=== PATIENT | female | born 1935 | race Caucasian/White ===

== ENCOUNTER 2017-05-06 15:47 | Emergency (ER) | payer OTHER ==
--- NOTE | 2017-05-06 16:49 | DIAGNOSTIC IMAGING REPORT ---
PROCEDURE: CT HEAD WITHOUT CONTRAST INDICATION: TRAUMA/INJURY TECHNIQUE: Noncontrast axial images with sagittal and coronal reformations. COMPARISON: None. FINDINGS: Mild cortical atrophy and white matter chronic ischemic changes. Normal ventricular system. No evidence of acute intracranial process. Visualized mastoids and sinuses are clear. IMPRESSION: 1. No acute intracranial abnormality 2. Mild atrophy and white matter chronic ischemic changes 3. Findings discussed with Dr. Amaya at 04:26 p.m., [place] Standard Time
--- NOTE | 2017-05-06 19:47 | ED ORDER SUMMARY ---
..... Patient: VIKKI CURTIS OrderSheet [facility] VisitID: [id number] [place] [address] 81y, F Registration Date/Time: 05/06/2017 ORDER SHEET Weight: 74.3 kg (stated) Allergies: Neomycin, Sulfate skin cleanser , Gramicidin, Bacitracin, Polymyxin B, Hydrocortisone, Benzalkonium Chloride GENERAL ORDERS: CT Head wo Cont Urgent (16:01 05/06/2017 Gordon SANCHEZ) (Ack 16:03 PWeiler ER Tech1) (17:04 LWhalen R.N.) Cardiac Panel Stat (16:13 05/06/2017 Gordon SANCHEZ) (Ack 16:23 PWeiler ER Tech1) (17:04 LWhalen R.N.) UA-Culture if indicated Urgent (17:37 05/06/2017 Gordon SANCHEZ) (Ack 17:45 PWeiler ER Tech1) (19:57 RCollier R.N.) MEDICATION ORDERS: Antivert PO 25 mg (NOW) (19:23 05/06/2017 Gordon SANCHEZ) (Ack 19:29 RCollier R.N.) (19:36 RCollier R.N.) Bactrim DS PO (Tablet 800-160 mg) 1 tab (NOW) (19:50 05/06/2017 Gordon SANCHEZ) (19:57 RCollier R.N.) IV FLUIDS: IV Saline Lock (16:13 05/06/2017 Gordon SANCHEZ) (Ack 17:04 LWhalen R.N.) Labetalol IV 20 mg (HIGH ALERT MEDICATION, NOW) (16:42 05/06/2017 Gordon SANCHEZ) (17:04 LWhalen R.N.) ORDER SHEET NOTES: [Electronically signed by Lorene Shook R.N. (20:09 05/06/2017)] [Electronically signed by Shaunna Amaya MD (16:53 05/15/2017)] [Electronically locked/signed by Lorene Shook R.N. (20:09 05/06/2017)]
--- NOTE | 2017-05-06 19:47 | ED ORDER SUMMARY ---
..... Patient: VIKKI CURTIS OrderSheet [facility] VisitID: [id number] [place] [address] 81y, F Registration Date/Time: 05/06/2017 ORDER SHEET Weight: 74.3 kg (stated) Allergies: Neomycin, Sulfate skin cleanser , Gramicidin, Bacitracin, Polymyxin B, Hydrocortisone, Benzalkonium Chloride GENERAL ORDERS: CT Head wo Cont Urgent (16:01 05/06/2017 Gordon SANCHEZ) (Ack 16:03 PWeiler ER Tech1) (17:04 LWhalen R.N.) Cardiac Panel Stat (16:13 05/06/2017 Gordon SANCHEZ) (Ack 16:23 PWeiler ER Tech1) (17:04 LWhalen R.N.) UA-Culture if indicated Urgent (17:37 05/06/2017 Gordon SANCHEZ) (Ack 17:45 PWeiler ER Tech1) (19:57 RCollier R.N.) MEDICATION ORDERS: Antivert PO 25 mg (NOW) (19:23 05/06/2017 Gordon SANCHEZ) (Ack 19:29 RCollier R.N.) (19:36 RCollier R.N.) Bactrim DS PO (Tablet 800-160 mg) 1 tab (NOW) (19:50 05/06/2017 Gordon SANCHEZ) (19:57 RCollier R.N.) IV FLUIDS: IV Saline Lock (16:13 05/06/2017 Gordon SANCHEZ) (Ack 17:04 LWhalen R.N.) Labetalol IV 20 mg (HIGH ALERT MEDICATION, NOW) (16:42 05/06/2017 Gordon SANCHEZ) (17:04 LWhalen R.N.) ORDER SHEET NOTES: [Electronically signed by Lorene Shook R.N. (20:09 05/06/2017)] [Electronically signed by Shaunna Amaya MD (16:53 05/15/2017)] [Electronically locked/signed by Lorene Shook R.N. (20:09 05/06/2017)]
--- NOTE | 2017-05-06 19:47 | ED CLINICAL REPORT ---
Clinical Report - Physicians/Mid Levels [facility] [address] [place] [address] 05/06/2017 15:49 Patient: VIKKI CURTIS Time Seen: 16:01. Arrived- By private vehicle. Historian- patient. HISTORY OF PRESENT ILLNESS Chief Complaint: DIZZINESS. Severity described as moderate at its maximum. When seen in the E.D., it was almost gone. Modifying factors- worsened by changing position. Relieved by nothing. Not described as a sense of rotation, movement or confusion. Not described as feeling off balance, light-headed or weak all over. Described as sense of falling. This started has been intermittent for about 2 weeks and is still present but is better now. No nausea, vomiting or hearing loss. (Pt states that 2 weeks ago, she fell and hit her head. Ever since then, she states that she has felt a little unsteady on her feet intermittently. No focal deficits. Pt does note her BP is running high today.). Similar symptoms previously: Recent medical care: Not recently seen/assessed. REVIEW OF SYSTEMS No headache, double vision, weakness, head injury or chest pain. No palpitations, black stools, numbness, bloody stools or fever. No sore throat, cough, difficulty breathing, abdominal pain or diarrhea. No difficulty with urination, skin rash, enlarged lymph nodes, chills or joint pain. The patient has had mild difficulty walking (intermittently). The patient has also had dizziness. She experienced syncope; (near-syncope). All systems otherwise negative, except as recorded above. PAST HISTORY Problems: High blood pressure . Hyperlipidemia. Coronary Artery Disease. Peripheral Arterial Occlusive Disease. Stenosis right iliac artery . Renal Insufficiency. Edema. Dislocated Shoulder. Cholecystitis. Immunizations. Additional Surgeries: Appendectomy. CABG. Hysterectomy. Medications: Potassium Chloride ER Oral. Metoprolol Tartrate Oral. Lisinopril Oral. Lasix Oral. Clopidogrel Bisulfate Oral. Atorvastatin Calcium Oral. ASA Oral. Acetaminophen Oral. Allergies: Bacitracin. Benzalkonium Chloride. Gramicidin. Hydrocortisone. Neomycin. Polymyxin B. Sulfate skin cleanser . SOCIAL HISTORY Former smoker. No alcohol use or drug use. ADDITIONAL NOTES The nursing notes have been reviewed. PHYSICAL EXAM Vital Signs: 05/06/2017 16:05 BP: 169/134. HR: 68. RR: 18. O2 saturation: 98%. Temp: 98.4 F. Have been reviewed. Appearance: Alert. No acute distress. Eyes: Pupils equal, round and reactive to light. No nystagmus. Extraocular movements normal. ENT: Normal ENT inspection. Moist mucous membranes. Neck: Normal inspection. CVS: Normal heart rate and rhythm. Heart sounds normal. Pulses normal. Respiratory: No respiratory distress. Breath sounds normal. Abdomen: Soft and nontender. Back: Normal inspection. No CVA tenderness. Skin: Skin warm and dry. Normal skin color. No rash. Normal skin turgor. Extremities: Extremities exhibit normal ROM. No lower extremity edema. Neuro: Alert. Mood/affect normal. Speech normal. Cranial nerves normal (as tested). No cerebellar findings. No motor deficit. No sensory deficit. (Patient answers questions appropriately, and is grossly oriented.). LABS, X-RAYS, AND EKG Rhythm Strip #1: Time: (16:10). Rate= 67. Normal sinus rhythm. Regular rhythm. Narrow QRS complexes. No ectopy. Conduction normal. Normal ST segments and T waves. The study was interpreted by me. CT Head: No acute changes. No bony abnormalities, no hemorrhage, no intracranial mass, no midline shift and no hydrocephalus. Head CT performed without contrast. The study was independently viewed by me, interpreted by the radiologist and contemporaneously by me and discussed with the radiologist. Prior studies were not available for comparison. Laboratory Tests: UA-Culture if indicated: (YENY: 05/06/2017 17:45) ( MsgRcvd 05/06/2017 18:04) Final results Test Result Flag Units (Reference) URINE COLOR YELLOW URINE APPEARANCE SL CLOUDY URINE GLUCOSE NEGATIVE (NEGATIVE) URINE BILIRUBIN NEGATIVE (NEGATIVE) URINE KETONE NEGATIVE (NEGATIVE) URINE SPECIFIC GRAVITY 1.010 (1.010-1.030) URINE PH 7.0 (5.0-8.0) URINE PROTEIN NEGATIVE (NEGATIVE) URINE UROBILINOGEN 0.2 EU/dL (0.2-1.0) URINE NITRITE NEGATIVE (NEGATIVE) URINE BLOOD TRACE-INTACT (NEGATIVE) URINE LEUK ESTERASE POSITIVE (NEGATIVE) URINE RBC NONE SEEN rbc/hpf (0-1) URINE WBC 10-15 wbc/hpf (0-1) URINE EPITHELIAL CELLS 0-1 EPI/hpf (0-5) URINE BACTERIA MANY (4+) (NONE SEEN) URINE COMMENT CULTURE INDICATED URINE CULTURES ARE SET-UP BASED ON THE FOLLOWING CRITERIA:POSITIVE NITRITEPOSITIVE LEUKOCYTE ESTERASEGREATER THAN 10 WHITE BLOOD CELLSMODERATE (2+) OR GREATER BACTERIA CBC w Diff: (YENY: 05/06/2017 16:50) ( [facility] 05/06/[place] 17:01) Final results Test Result Flag Units (Reference) WHITE BLOOD COUNT 6.2 K/uL (4.5-11.5) RED BLOOD COUNT 3.97 L M/uL (4.00-5.20) HEMOGLOBIN 11.9 L gm/dL (12.0-16.0) HEMATOCRIT 35.5 L % (36.0-46.0) MEAN CELL VOLUME 90 fL (80-100) MEAN CORPUSCULAR HGB 30 pg (26-34) MEAN CORPUSCULAR HGB CONC 33 g/dL (31-37) RED CELL DISTRIBUTION WIDTH 13.3 % (11.6-14.8) PLATELET COUNT 191 K/uL (150-400) NEUTROPHIL % 66.1 % (50-75) LYMPH % 20.7 L % (25-40) MONO % 9.2 % (3-14) EOSINOPHIL % 3.2 % (0-4) BASOPHIL % 0.8 % (0-2) CHEM 13 PANEL: (YENY: 05/06/2017 16:50) ( [facility] 05/06/2017 17:15) Final results Test Result Flag Units (Reference) GLUCOSE 110 mg/dL (70-110) BUN 26 H mg/dL (7-18) CREATININE 1.8 H mg/dL (0.6-1.3) Estimated GFR 28.85 mL/min Estimated GFR- 34.96 mL/min Note: Persistent reduction over 3 months in eGFR<60 mL/min/1.73 m2 defines CKD. Patients with eGFR values>=60 mL/min/1.73 m2 may also have CKD if evidence ofpersistent proteinuria. Additional information may be foundat www.[email or web address].org. SODIUM 145 mmol/L (136-145) POTASSIUM 3.9 mmol/L (3.5-5.1) CHLORIDE 109 H mmol/L (98-107) CARBON DIOXIDE 29 mmol/L (21-32) CALCIUM 9.5 mg/dL (8.5-10.1) TOTAL PROTEIN 6.3 L g/dL (6.4-8.2) ALBUMIN 3.2 L g/dL (3.3-5.0) BILIRUBIN, TOTAL 0.6 mg/dL (0.0-1.0) ALKALINE PHOSPHATASE 55 U/L (46-116) AST (SGOT) 19 U/L (15-37) ALT (SGPT) 20 U/L (12-78) CPK 62 U/L (24-260) MAGNESIUM 2.2 mg/dL (1.8-2.4) TROPONIN I <0.05 ng/mL (0.00-1.5) TROPONIN REFERENCE RANGE:<0.1 NEGATIVE0.1-1.5 INDETERMINANT>1.5 POSITIVE . Pulse Oximetry: 05/06/2017 16:05 O2 saturation: 98%. (FIO2 - room air). Interpretation: normal. PROGRESS AND PROCEDURES Course of Care: Pt was worked up for her intermittent unsteadiness, post-head trauma. Head CT was unremarkable. Labs were also unremarkable, but UA showed a UTI. Pt was started on abx for this. Her BP was also quite high in the ED, and she was treated for this with labetolol, which did improve her pressure. Pt did not have any focal deficits, and sx had been going on for 2 weeks. Head trauma was also distant, pt ambulated well in the ED, and I felt the pt was stable for d/c home. Patient and family counseled in person regarding the patient's stable condition, test results, diagnosis and need for follow-up. Concerns were addressed. Old medical records reviewed. Disposition: Discharged. Condition: stable and improved. CLINICAL IMPRESSION Acute dizziness Minor closed head injury. Concussion. No loss of consciousness. Acute urinary tract infection with cystitis. Uncontrolled essential hypertension. INSTRUCTIONS Drink plenty of fluids. (Your CT scan, EKG, and labs look good. You do have a urinary tract infection, for which you've been started on antibiotics. Your blood pressure is in need of better control, and you are likely having some degree of vertigo, as well. We will start you on a medication for the vertigo, and will adjust your blood pressure medications. You will need to call Dr. Babb's office first thing in the morning to set up a follow-up appointment.). Warnings: Further evaluation is necessary. It is very important to follow up with a physician. GENERAL WARNINGS: Return or contact your physician immediately if your condition worsens or changes unexpectedly, if not improving as expected, or if other problems arise. Your Current Medications: CHANGE THE FOLLOWING MEDICATIONS TO: Lisinopril Oral : 40 mg 2x a day. CONTINUE TAKING THE FOLLOWING MEDICATIONS: Acetaminophen Oral. ASA Oral. Atorvastatin Calcium Oral. Clopidogrel Bisulfate Oral. Lasix Oral. Potassium Chloride ER Oral. Metoprolol Tartrate Oral. Prescription Medications: Antivert 25 mg: take 1-2 tablets orally every 6 hours as needed for dizziness. Dispense thirty (30). No refill. Substitution is permissible. Lisinopril 40 mg: take 1 orally every 12 hours. Dispense thirty (30). No refills. Bactrim DS 800 mg / 160 mg: take 1 tablet orally every 12 hours for 7 days. No refill. Substitution is permissible. Follow-up: Follow up with your doctor. Call for the next available appointment. Reason for referral: Follow up ER visit, discuss blood pressure, discuss wearing Holter monitor. Understanding of the discharge instructions verbalized by patient and family. (Electronically signed by Shaunna Amaya MD 05/15/2017 16:53)
--- NOTE | 2017-05-06 19:47 | ED NURSING NOTES ---
Clinical Report - Nurses [place] [address] [place] [address] 05/06/2017 15:49 Patient: VIKKI CURTIS [facility]#: [id number] TRIAGE Triage time 16:00 May 06 2017. Acuity: LEVEL 3. Chief Complaint: DIFFICULTY STANDING and DIFFICULTY WALKING and VISUAL DISTURBANCES and SYNCOPE. THA COMA SCORE: [place] Coma Scale: 15- eyes open spontaneously (4); best verbal response- oriented x 4 (5); best motor response- obeys commands (6). --16:39 Claudia Morgan R.N. 16:05 05/06/17. BP: 169/134. HR: 68. RR: 18. O2 saturation: 98%. Temp: 98.4 F. Pain level now 5/10. --16:39 Claudia Morgan R.N. Weight: 74.3 kg stated. Height/Length: 65 inches Per Patient. BMI: 27.3. --16:36 Claudia Morgan R.N. Medications Acetaminophen Oral. --16:28 Claudia Morgan R.N. ASA Oral. --16:29 Claudia Morgan R.N. Atorvastatin Calcium Oral. --16:29 Claudia Morgan R.N. Clopidogrel Bisulfate Oral. --16:29 Claudia Morgan R.N. Lasix Oral. --16:29 Claudia Morgan R.N. Lisinopril Oral. --16:30 Claudia Morgan R.N. Metoprolol Tartrate Oral. --16:30 Claudia Morgan R.N. Potassium Chloride ER Oral. --16:31 Claudia Morgan R.N. Allergies Neomycin. --16:25 Claudia Morgan R.N. Sulfate skin cleanser . --16:26 Claudia Morgan R.N. Gramicidin. --16:26 Claudia Morgan R.N. Bacitracin. --16:26 Claudia Morgan R.N. Polymyxin B. --16:27 Claudia Morgan R.N. Hydrocortisone. --16:27 Claudia Morgan R.N. Benzalkonium Chloride. --16:27 Claudia Morgan R.N. History Arrived by private vehicle. Historian: patient. This started 2 weeks. ( Patient fell 2 weeks ago and hit her head. Since then she has been dizzy and falling having black outs. BP was high in the clinic.). She has had a recent fall, difficulty with speech, trouble walking and dizziness. PAST MEDICAL HX: Immunizations: up-to-date. SOCIAL HX: Former smoker, end date 2006. No alcohol use or drug use. SELF HARM ASSESSMENT: A self harm assessment was performed. The patient answered "no" to the question "Have you recently felt down, depressed, or hopeless?" and "Do you have thoughts of harming or killing yourself?". NUTRITIONAL RISK ASSESSMENT: The nutritional risk assessment revealed no deficiencies. FUNCTIONAL ASSESSMENT: Functional assessment: no impairments noted. LEARNING NEEDS ASSESSMENT: The learning needs assessment revealed no barriers. ABUSE ASSESSMENT: Abuse assessment: (yes) The patient was asked "Do you feel safe in your home?". FALL RISK ASSESSMENT: Fall risk assessment completed per protocol. Fall interventions initiated. Side rails up x2. Brakes on Bed in low position. Patient visible from nurses' station and identified as a fall risk by ID band. Call light in reach of patient. Instructed not to get up without assistance. SKIN INTEGRITY ASSESSMENT: Skin integrity risk assessment completed. No skin integrity risk identified. --16:39 Claudia Morgan R.N. PROBLEMS: High blood pressure . Hyperlipidemia. Coronary Artery Disease. Peripheral Arterial Occlusive Disease. Stenosis right iliac artery . Renal Insufficiency. Edema. Abnormal Liver Function Test. --16:35 Claudia Morgan R.N. ADDITIONAL SURGERIES: Hysterectomy. --16:35 Claudia Morgan R.N. Appendectomy. Bipass. --16:39 Claudia Morgan R.N. Interventions ID and allergy band on patient. --16:39 Claudia Morgan R.N. PHYSICAL ASSESSMENT To room via wheelchair. Baseline functional status: usually alert, oriented x4 and cooperative. (Studdering and forgetting words. keeps falling). GENERAL / NEURO / PSYCH: Oriented X 4. Appears in no acute distress. Mood/affect normal. Moves all extremities equally. HEENT: No facial asymmetry noted. Pupils equal, round and reactive to light. EOM intact. Pharynx within normal limits. RESPIRATORY: Breath sounds within normal limits. Respirations not labored. CVS: Normal sinus rhythm noted. Capillary refill less than 2 seconds. SKIN: Skin is intact, warm and dry. ( Bruise on right side of forehead). --16:55 Claudia Morgan R.N. NURSING PROGRESS NOTES 16:41 05/06/17. BP: 250/104. HR: 66. RR: 18. O2 saturation: 96%. --16:41 Claudia Morgan R.N. The initial plan of care for this patient includes an assessment with efforts to address patient positioning, appropriate ambient lighting and comfortable environmental temperature; impairment of the neurological system. radiation monitor, pulse oximeter and NIBP monitor placed on patient. Patient gowned. Head of bed elevated 75 degrees. Reassurance given. Call light placed in reach. Side rails up x 1. Bed placed in lowest position. Brakes of bed on. --16:51 Claudia Morgan R.N. 16:38 05/06/2017 Site #1 started via IV in the right antecubital space with an 20g angiocath, with aseptic technique and good blood return; one attempt. Blood drawn: rainbow set. Labeled in the presence of the patient and sent to the lab. Saline lock flushed with 10 mL saline. --17:04 Claudia Morgan R.N. 17:00 05/06/2017 Labetalol IVP 20 mg given over 15 minute(s) via site #1. Allergies verified and confirmed 5 rights. IV patency established. IV site checked: no pain, redness, or swelling. IV flushed thoroughly pre- and post-medication administration. --17:04 Claudia Morgan R.N. 17:15 05/06/17. BP: 192/70. HR: 68. RR: 16. O2 saturation: 98%. 17:10 05/06/17. BP: 198/72. HR: 74. RR: 18. O2 saturation: 98%. 17:05 05/06/17. BP: 180/73. HR: 70. RR: 16. O2 saturation: 98%. 17:00 05/06/17. BP: 220/90. HR: 68. RR: 18. O2 saturation: 98%. 16:55 05/06/17. HR: 68. Additional comments: mean would only take 107. 16:53 05/06/17. BP: 166/144. HR: 60. RR: 16. O2 saturation: 98%. 16:41 05/06/17. BP: 250/104. HR: 66. RR: 18. O2 saturation: 96%. 16:30 05/06/17. HR: 68. O2 saturation: 98%. Additional comments: 124 mean would only read . 16:20 05/06/17. BP: 198/90. HR: 62. RR: 20. O2 saturation: 98%. --17:34 Claudia Morgan R.N. 18:05 05/06/17. BP: 195/67. HR: 71. RR: 18. O2 saturation: 98%. 17:45 05/06/17. BP: 128/91. HR: 69. RR: 17. O2 saturation: 98%. 17:30 05/06/17. BP: 186/74. HR: 69. RR: 20. O2 saturation: 97%. --19:12 Claudia Morgan R.N. ( Report given to Lorene TRONCOSO). --19:12 Claudia Morgan R.N. 19:00 05/06/17. BP: 173/89. HR: 74. RR: 18. O2 saturation: 100%. 18:45 05/06/17. BP: 180/109. HR: 76. RR: 18. O2 saturation: 98%. 18:30 05/06/17. BP: 181/76. HR: 74. RR: 20. O2 saturation: 98%. Pain level now: 12/21. 18:15 05/06/17. BP: 198/69. HR: 76. RR: 18. O2 saturation: 98%. --19:19 Claudia Morgan R.N. Care transferred and report received. --19:20 Lorene Shook R.N. 19:33 05/06/2017 Antivert (Meclizine HCl) PO Tablets 25 mg given. Allergies verified, confirmed 5 rights and sedative warning given to the patient. --19:36 Lorene Shook R.N. 19:35 05/06/2017 Site #1 removed upon discharge. Catheter intact. Manual pressure and bandage applied. --19:36 Lorene Shook R.N. 19:53 05/06/2017 Bactrim DS (Sulfamethoxazole-TMP DS) PO Tablets 1 tab given. Allergies verified and confirmed 5 rights. --19:57 Lorene Shook R.N. 19:56- Pt ambulates to restroom. normal gait noted. Pt complains of mild dizziness, but states she feels better than she has been feeling. --19:58 Lorene Shook R.N. DISPOSITION / DISCHARGE 19:27 05/06/17. BP: 179/82. BP. ED physician notified. HR: 68. RR: 16 (regular and unlabored). O2 saturation: 93% on room air. [place]uer-Hall pain scale: 2/10. --19:28 Lorene Shook R.N. 19:25 05/06/2017 Site #1; not patent. Pain and swelling noted. Infiltration Scale: Grade 4- skin discolored, bruised, or swollen and edema 1 - 6 inches with mild to moderate pain. --19:29 Lorene Shook R.N. 20:08. Condition at departure: improved and stable. No learning barriers present. Discharge instructions provided and reviewed with the patient. Reviewed medication(s) side effects, precautions, dosing and course information. Prescription(s) given to the patient. Patient verbalized understanding. Written instructions provided in Upper Sorbian. The patient was discharged home and accompanied by veterinary virus serum inspector. She left the Emergency Department ambulatory and via private vehicle. Primary Care Nurse driving. --20:08 Lorene Shook R.N. Locked/Released at 05/06/2017 20:09 by Lorene Shook R.N.
--- NOTE | 2017-05-15 16:53 | ED MED RECONCILIATION SUMMARY ---
Patient: VIKKI CURTIS Medication Reconciliation Report [facility] VisitID: [id number] [place] [address] 81y, F Registration Date/Time: 05/06/2017 Weight: 74.3 kg Height/Length: 65 in. BMI: 27.3 ALLERGIES: Bacitracin, Benzalkonium Chloride, Gramicidin, Hydrocortisone, Neomycin, Polymyxin B, Sulfate skin cleanser The patient's Home Medications are listed below: CHANGE THE FOLLOWING MEDICATIONS TO: Lisinopril Oral : 40 mg 2x a day CONTINUE TAKING THE FOLLOWING MEDICATIONS: Acetaminophen Oral ASA Oral Atorvastatin Calcium Oral Clopidogrel Bisulfate Oral Lasix Oral Metoprolol Tartrate Oral Potassium Chloride ER Oral The source(s) of the original Home Medication information: Not obtained. The following Medications were given to the patient in the Emergency Department: Labetalol [IVP] IVP 20 mg, administered: 05/06/2017 5:00:00 PM Antivert [PO] PO 25 mg, administered: 05/06/2017 7:33:00 PM Bactrim DS [PO] PO 1 tab, administered: 05/06/2017 7:53:00 PM The following Medications were prescribed to the patient: Antivert 25 mg: take 1-2 tablets orally every 6 hours as needed for dizziness. Dispense thirty (30). No refill. Substitution is permissible. -- Shaunna Amaya MD Lisinopril 40 mg: take 1 orally every 12 hours. Dispense thirty (30). No refills. -- Shaunna Amaya MD Bactrim DS 800 mg / 160 mg: take 1 tablet orally every 12 hours for 7 days. No refill. Substitution is permissible. -- Shaunna Amaya MD
--- NOTE | 2017-05-15 16:53 | ED MAR SUMMARY ---
..... Medication Administration Record [facility] [address] [place] [address] Patient: VIKKI CURTIS Visit ID: [id number] 81y, F Weight: 74.3 kg Height/Length: 65 in BMI: 27.3 ALLERGIES: Benzalkonium Chloride, Hydrocortisone, Polymyxin B, Bacitracin, Gramicidin, Sulfate skin cleanser , Neomycin Given 17:00 05/06/2017 Claudia Morgan R.N. Medication Administered: LABETALOL [IVP], Dose: 20 mg IVP over 15 minute(s), Site: #1 right AC. Medication Ordered: Labetalol IV 20 mg (HIGH ALERT MEDICATION, NOW). Given 19:33 05/06/2017 Lorene Shook R.N. Medication Administered: ANTIVERT [PO] (MECLIZINE HCL), Dose: 25 mg Tablets PO. Medication Ordered: Antivert PO 25 mg (NOW). Given 19:53 05/06/2017 Lorene Shook R.N. Medication Administered: BACTRIM DS [PO] (SULFAMETHOXAZOLE-TMP DS), Dose: 1 tab Tablets PO. Medication Ordered: Bactrim DS PO (Tablet 800-160 mg) 1 tab (NOW).
--- NOTE | 2017-05-15 16:53 | ED MED RECONCILIATION SUMMARY ---
Patient: VIKKI CURTIS Medication Reconciliation Report [facility] VisitID: [id number] [place] [address] 81y, F Registration Date/Time: 05/06/2017 Weight: 74.3 kg Height/Length: 65 in. BMI: 27.3 ALLERGIES: Bacitracin, Benzalkonium Chloride, Gramicidin, Hydrocortisone, Neomycin, Polymyxin B, Sulfate skin cleanser The patient's Home Medications are listed below: CHANGE THE FOLLOWING MEDICATIONS TO: Lisinopril Oral : 40 mg 2x a day CONTINUE TAKING THE FOLLOWING MEDICATIONS: Acetaminophen Oral ASA Oral Atorvastatin Calcium Oral Clopidogrel Bisulfate Oral Lasix Oral Metoprolol Tartrate Oral Potassium Chloride ER Oral The source(s) of the original Home Medication information: Not obtained. The following Medications were given to the patient in the Emergency Department: Labetalol [IVP] IVP 20 mg, administered: 05/06/2017 5:00:00 PM Antivert [PO] PO 25 mg, administered: 05/06/2017 7:33:00 PM Bactrim DS [PO] PO 1 tab, administered: 05/06/2017 7:53:00 PM The following Medications were prescribed to the patient: Antivert 25 mg: take 1-2 tablets orally every 6 hours as needed for dizziness. Dispense thirty (30). No refill. Substitution is permissible. -- Shaunna Amaya MD Lisinopril 40 mg: take 1 orally every 12 hours. Dispense thirty (30). No refills. -- Shaunna Amaya MD Bactrim DS 800 mg / 160 mg: take 1 tablet orally every 12 hours for 7 days. No refill. Substitution is permissible. -- Shaunna Amaya MD
--- NOTE | 2017-05-15 16:53 | ED DISCHARGE INSTRUCTIONS ---
Patient: VIKKI CURTIS General Instructions [facility] VisitID: [id number] [place] [address] 81y, F Registration Date/Time: 05/06/2017 Acute dizziness Minor closed head injury. Concussion. No loss of consciousness. Acute urinary tract infection with cystitis. Uncontrolled essential hypertension. INSTRUCTIONS Drink plenty of fluids. (Your CT scan, EKG, and labs look good. You do have a urinary tract infection, for which you've been started on antibiotics. Your blood pressure is in need of better control, and you are likely having some degree of vertigo, as well. We will start you on a medication for the vertigo, and will adjust your blood pressure medications. You will need to call Dr. Babb's office first thing in the morning to set up a follow-up appointment.). Warnings: Further evaluation is necessary. It is very important to follow up with a physician. GENERAL WARNINGS: Return or contact your physician immediately if your condition worsens or changes unexpectedly, if not improving as expected, or if other problems arise. Your Current Medications: CHANGE THE FOLLOWING MEDICATIONS TO: Lisinopril Oral : 40 mg 2x a day. CONTINUE TAKING THE FOLLOWING MEDICATIONS: Acetaminophen Oral. ASA Oral. Atorvastatin Calcium Oral. Clopidogrel Bisulfate Oral. Lasix Oral. Potassium Chloride ER Oral. Metoprolol Tartrate Oral. Prescription Medications: Antivert 25 mg: take 1-2 tablets orally every 6 hours as needed for dizziness. Dispense thirty (30). No refill. Substitution is permissible. Lisinopril 40 mg: take 1 orally every 12 hours. Dispense thirty (30). No refills. Bactrim DS 800 mg / 160 mg: take 1 tablet orally every 12 hours for 7 days. No refill. Substitution is permissible. Follow-up: Follow up with your doctor. Call for the next available appointment. Reason for referral: Follow up ER visit, discuss blood pressure, discuss wearing Holter monitor. Understanding of the discharge instructions verbalized by patient and family. ADDITIONAL INFORMATION Dizziness [Uncertain Cause] Dizziness is a common symptom sometimes described as "lightheadedness" or feeling like you are going to faint. If it lasts for only a few seconds and is related to changes in position (such as getting up after lying or sitting for a long time), it is usually not a sign of anything serious. Dizziness that lasts for minutes to hours, or comes on for no apparent reason, may be a sign of a more serious problem (such as dehydration, a medicine reaction, disease of the heart or brain). Today's exam did not show an exact cause for your dizzy spell . Sometimes additional tests are required before a cause can be found. Therefore, it is important to follow up with your doctor if your symptoms continue. Home Care: 1) If a dizzy spell occurs and lasts more than a few seconds, lie down until it passes. If you are lying down, then you cannot hurt yourself by falling if you do faint. 2) Do not drive or operate dangerous equipment until the dizzy spells have stopped for at least 48 hours. 3) If dizzy spells occur with sudden standing, this may be a sign of mild dehydration. Drink extra fluids over the next few days. 4) If you recently started a new medicine or if you had the dose of a current medicine increased (especially blood pressure medicine), talk with the prescribing doctor about your symptoms. Dose adjustments may be needed. Follow Up with your doctor for further evaluation within the next seven days, if your symptoms continue. Get Prompt Medical Attention if any of the following occur: -- Worsening of your symptoms -- Fainting, headache or seizure -- Repeated vomiting -- Feeling like you or the room is spinning -- Chest, arm, neck, back or jaw pain -- Palpitations (the sense that your heart is fluttering or beating fast or hard) -- Shortness of breath -- Blood in vomit or stool (black or red color) -- Weakness of an arm or leg or one side of the face -- Difficulty with speech or vision Bladder Infection,Female (Adult) A bladder infection ("cystitis" or "UTI") usually causes a constant urge to urinate and a burning when passing urine. Urine may be cloudy, smelly or dark. There may be pain in the lower abdomen. A bladder infection occurs when bacteria from the vaginal area enter the bladder opening (urethra). This can occur from sexual intercourse, wearing tight clothing, dehydration and other factors. Home Care: Drink lots of fluids (at least 6-8 glasses a day, unless you must restrict fluids for other medical reasons). This will force the medicine into your urinary system and flush the bacteria out of your body. Avoid sexual intercourse until your symptoms are gone. Avoid caffeine, alcohol and spicy foods. These can irritate the bladder. A bladder infection is treated with antibiotics. You may also be given Pyridium (generic = phenazopyridine) to reduce the burning sensation. This medicine will cause your urine to become a bright orange color. The orange urine may stain clothing. You may wear a pad or panty-liner to protect clothing. Preventing Future Infections: Always wipe from front to back after a bowel movement. Keep the genital area clean and dry. Drink plenty of fluids each day to avoid dehydration. Both sexual partners should wash before intercourse. Urinate right after intercourse to flush out the bladder. Wear cotton underwear and cotton-lined panty hose; avoid tight-fitting pants. If you are on control pills and are having frequent bladder infections, discuss with your doctor. Follow Up: Return to this facility or see your doctor if ALL symptoms are not gone after three days of treatment. Get Prompt Medical Attention if any of the following occur: Fever of 100.4F (38C) or higher, or as directed by your healthcare provider No improvement by the third day of treatment Increasing back or abdominal pain Repeated vomiting; unable to keep medicine down Weakness, dizziness or fainting Vaginal discharge Pain, redness or swelling in the labia (outer vaginal area) Hypertension, Out Of Control (Established) Your blood pressure was unusually high today. This can occur as a result of missing doses of your blood pressure medicine. Some asthma inhalers, decongestants, diet pills, and street drugs such as cocaine and amphetamine can worsen hypertension. An increase in body weight, increase in salt intake, smoking, and caffeine are other causes. Emotional upset or acute pain can cause a sudden rapid rise in blood pressure which may return to normal after a period of rest. A normal blood pressure is less than 140/90. The first (top) number is the systolic pressure. The second (bottom) number is the diastolic pressure. Hypertension exists when either the top number is 140 or higher, OR the bottom number is 90 or higher on repeated measurements. Home Care: All patients with high blood pressure should do the following to lower their pressure. If you are on blood pressure medicines, then these methods may reduce or eliminate your need for medicines in the future. Begin a weight-loss program if you are overweight. Reduce your salt intake. Avoid high-salt foods (olives, pickles, smoked meats, salted potato chips, etc.). Do not add salt to your food at the table. Use only small amounts of salt when cooking. Begin an exercise program. Discuss with your doctor what type of exercise program would be best for you. It doesnt have to be difficult. Even brisk walking for 20 minutes3 times a week is a good form of exercise. Avoid medicines which contain heart stimulants. This includes many cold and sinus decongestant pills and sprays as well as diet pills. Check the warnings about hypertension on the label. Stimulants such as amphetamine or cocaine could be lethal for someone with hypertension. Never take these. Limit your caffeine intake or switch to decaf. Stop smoking. If you are a long-time smoker, this can be hard. Enroll in a stop-smoking program to improve your chance of success. Talk to your physician about ways to improve your chance of success. Learning how to handle stress better is an important part of any program to lower blood pressure. Learn about relaxation methods such as meditation, yoga, or biofeedback. If medicines were prescribed, take them exactly as directed. Missing doses may cause your blood pressure to get out of control. Consider buying an automatic blood pressure machine (available at many pharmacies). Use this to monitor your blood pressure and report to your doctor. Follow Up: Regular visits to your own doctor for blood pressure checks and medicine adjustment is an important part of your care. Make a follow-up appointment as directed by our staff. Get Prompt Medical Attention if any of the following occur: Chest, arm, shoulder, neck, or upper back pain Shortness of breath Severe headache Throbbing or rushing sound in the ears Nosebleed Extreme drowsiness, confusion, or fainting Dizziness or vertigo (dizziness with spinning sensation) Weakness of an arm or leg or one side of the face Difficulty with speech or vision You have been given the following additional information: Dizziness, Unk Cause Bladder Infection, Female (Adult) Hypertension, Established, Out Of Control (Electronically signed by Shaunna Amaya MD 05/15/2017 16:53)
--- NOTE | 2017-05-15 16:53 | ED MAR SUMMARY ---
..... Medication Administration Record [facility] [address] [place] [address] Patient: VIKKI CURTIS Visit ID: [id number] 81y, F Weight: 74.3 kg Height/Length: 65 in BMI: 27.3 ALLERGIES: Benzalkonium Chloride, Hydrocortisone, Polymyxin B, Bacitracin, Gramicidin, Sulfate skin cleanser , Neomycin Given 17:00 05/06/2017 Claudia Morgan R.N. Medication Administered: LABETALOL [IVP], Dose: 20 mg IVP over 15 minute(s), Site: #1 right AC. Medication Ordered: Labetalol IV 20 mg (HIGH ALERT MEDICATION, NOW). Given 19:33 05/06/2017 Lorene Shook R.N. Medication Administered: ANTIVERT [PO] (MECLIZINE HCL), Dose: 25 mg Tablets PO. Medication Ordered: Antivert PO 25 mg (NOW). Given 19:53 05/06/2017 Lorene Shook R.N. Medication Administered: BACTRIM DS [PO] (SULFAMETHOXAZOLE-TMP DS), Dose: 1 tab Tablets PO. Medication Ordered: Bactrim DS PO (Tablet 800-160 mg) 1 tab (NOW).
== END 2017-05-06 20:05 | disposition home or self-care (01) ==
LOC: ED SRH 15:47
DX: S06.0X0A Concussion without loss of consciousness, initial encounter (principal); R42 Dizziness and giddiness; N30.00 Acute cystitis without hematuria; W18.30XA Fall on same level, unspecified, initial encounter; W22.8XXA Striking against or struck by other objects, initial encounter; Y92.9 Unspecified place or not applicable; I25.10 Atherosclerotic heart disease of native coronary artery without angina pectoris; I10 Essential (primary) hypertension
CPT/HCPCS: 90004; 90100; 90148; 90469; 90616; 92610; 92720; 95059